=== PATIENT | female | born 1950 | race Caucasian/White ===

== ENCOUNTER 2019-11-25 12:29 | Outpatient (CLI) | payer MEDICARE, OTHER, SELFPAY ==
--- NOTE | 2019-11-25 12:54 | ECHO_ITS ---
Patient Info Name: Debo Brennan Age: 69 years : 1950 Gender: Female Ht: 60 in Wt: 115 lbs BSA: 1.49 m2 HR: 70 bpm BP: 122 / 71 mmHg Technical Quality: Good Exam Date: 11/25/2019 1:00 PM Exam Location: [facility] Patient Status: Outpatient Admit Date: 11/25/2019 Staff Ordering Physician: Danisha Thayer MD Belt Tender: Rivka Yang RDCS Attending Provider: Danisha Thayer MD Referring Physician: Flaca FRAUSTO; Exam Type: CA echo doppler color flow Study Info Indications R01.1 - Cardiac murmur, unspecified Complete two-dimensional, color flow and Doppler transthoracic echocardiogram is performed. Summary 1. Left ventricular chamber dimension is normal. 2. Left ventricular systolic function is normal, estimated at 60-65%. 3. The left ventricular diastolic function is grade II diastolic dysfunction. 4. E/e' 5 is not elevated. 5. Global longitudinal strain is normal at -17.8%. 6. 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 7. There is trace mitral valve regurgitation. 8. There is trace tricuspid valve regurgitation. 9. No pulmonary hypertension, estimated pulmonary arterial systolic pressure is 23 mmHg. Left Ventricle E/e' 5 is not elevated. Global longitudinal strain is normal at -17.8%. Left ventricular chamber dimension is normal. Left ventricular systolic function is normal, estimated at 60-65%. The left ventricular diastolic function is grade II diastolic dysfunction. Right Ventricle Right ventricular chamber dimension is normal. Right ventricular systolic function is normal. Left Atria Left atrial chamber dimension is normal. 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 Right atrial chamber dimension is normal. Aortic Valve The aortic valve is trileaflet. There is no aortic valve stenosis. There is no aortic valve regurgitation. Pulmonic Valve There is no pulmonic regurgitation. Mitral Valve There is no mitral valve stenosis. There is trace mitral valve regurgitation. Tricuspid Valve There is trace tricuspid valve regurgitation. No pulmonary hypertension, estimated pulmonary arterial systolic pressure is 23 mmHg. Pericardium/Pleural There is no pericardial effusion. Inferior Vena Cava Normal inferior vena cava with >50% collapse upon inspiration consistent with normal right atrial pressure, 5 mmHg. Aorta The aortic root size at the sinus of Valsalva is normal. Left Ventricular Outflow Tract Name Value Normal LVOT 2D LVOT Diameter 1.9 cm LVOT Doppler LVOT Peak Velocity 110 cm/s LVOT Peak Gradient 5 mmHg LVOT Mean Gradient 3 mmHg LVOT VTI 24 cm LVOT VTI/AV VTI Ratio 0.9 LVOT Stroke Volume 66 ml LVOT CO 4.4 l/min LVOT CI 2.9 l/min/m2 Pulmonic Valve Name
== END 2019-11-25 12:30 | disposition home or self-care (01) ==
PROVIDERS: PCP Family Medicine; Visit Provider Family Medicine
DX: R01.1 Cardiac murmur, unspecified (principal)
CPT/HCPCS: 93306

== ENCOUNTER 2019-12-06 00:25 | Outpatient (CLI) | payer MEDICARE, OTHER, SELFPAY ==
[2019-12-06 19:45] LABS: SARS-CoV-2 RNA PCR Negative
== END 2019-12-06 00:26 | disposition home or self-care (01) ==
LOC: ANHCOVIDDT 00:26
PROVIDERS: PCP Family Medicine; Visit Provider Internal Medicine Gastroenterology
DX: Z01.818 Encounter for other preprocedural examination (principal); Z11.59 Encounter for screening for other viral diseases
CPT/HCPCS: 87635; C9803; U0003

== ENCOUNTER 2019-12-08 04:04 | Day surgery (SDC) | payer MEDICARE, OTHER, SELFPAY ==
[2019-12-01 13:58] VITALS: BMI 22.4
--- NOTE | 2019-12-08 09:04 | WPDANESEPPF ---
Anes - Initial Pre Proc Eval Procedure: Operation Date: 12/08/19 10:30 Proposed Procedures p Colonoscopy - Mendez Lynn MD Date/Time: 12/08/19 09:04 Surgeon: Mendez Lynn MD Pre Op Diagnosis: Iron Deficiency Anemia Patient Data Age: 69 Gender: F Height: 1.52 m Weight: 52 kg Allergies Allergy/AdvReac Type Severity Reaction Status Date / Time No Known Allergies Allergy Unknown Verified 12/01/19 13:54 Home Medications Medication Instructions Recorded Confirmed Type diclofenac sodium 75 mg 75 mg PO DAILY tablet 08/30/19 12/01/19 History tablet,delayed release ergocalciferol (vitamin D2) 1,250 1,250 mcg PO MONTHLY 08/30/19 12/01/19 History mcg (50,000 unit) capsule mirabegron 25 mg tablet,extended 25 mg PO DAILY 08/30/19 12/01/19 History release 24 hr bodoqtiwjzct-Pj-vipa-minerals 18 1 tablet PO tablet 08/30/19 11/30/19 History mg-0.4 mg tablet pantoprazole 20 mg tablet,delayed 20 mg PO QAM #90 tablet 08/30/19 12/01/19 Rx release rosuvastatin 5 mg tablet 5 mg PO DAILY 08/30/19 12/01/19 History melatonin 10 mg PO HS 12/01/19 12/01/19 History Patient hx anesthesia problems: none Family hx anesthesia problems: none PMFSH Past Medical History Medical History (Updated 12/08/19 @ 09:06 by Quincy Alcazar MD) Cancer 2006 colon resection for cancer GERD without esophagitis Grade II diastolic dysfunction 11/2019 echo HTN (hypertension) Iron deficiency anemia, unspecified Malignant neoplasm of colon, unspecified site Mixed hyperlipidemia Normocytic anemia Stress incontinence Family History Family History (Updated 04/08/18 @ 10:31 by DOCTOR UNKNOWN) Other Carcinoma of colon Social History Social History Smoking status: Never smoker Alcohol intake: never Anes - Eval Final PreProcedure Day of Procedure 12/08/19 09:04 Patient weight: normal Heart: regular rate and rhythm Lungs: clear to auscultation and normal air movement Airway: Mallampati scale class II Neurological: alert and oriented Last oral intake: >/= 8 hours ASA classification: III Emergent: no Anesthetic plan: proceed Anesthesia type and monitoring: general GIVS Informed Consent: The patient's anesthetic plan and its attendant risks and benefits were discussed with the patient/family/POA. Questions were solicited and answers provided to the satisfaction of the patient/family/POA.
[2019-12-08 10:13] VITALS: BP 135/74; PULSE 71; RESP 18; TEMP 36.7; O2SAT 98; BMI 23.3
[2019-12-08] MEDS: LACTATED RINGERS 1,000 ML 150 ML IV CONT (10:16)
--- NOTE | 2019-12-08 10:36 | WPDGICN ---
Assessment and Plan Assessment and plan (1) YVON (iron deficiency anemia): Code(s): D50.9 - Iron deficiency anemia, unspecified Status: Acute Assessment and Plan: Patient with iron deficiency anemia. Plan is for colonoscopy to assess more thoroughly because of her prior history of colon cancer. Iron replacement encourage. If colonoscopy not fruitful than EGD would be indicated to search for other sources of anemia. (2) Personal history of malignant neoplasm of large intestine: Code(s): Z85.038 - Personal history of other malignant neoplasm of large intestine Status: Acute (3) GERD without esophagitis: Code(s): K21.9 - Gastro-esophageal reflux disease without esophagitis Status: Acute GI Consult Note Consult date/time: 12/08/19 10:36 HPI: Debo Brennan is a 69 year old female seen at the request of Dr Danisha Thayer. Patient presents for colonoscopy. She recently was found to have iron deficiency anemia repeat colonoscopy advised. Patient has a past medical history of colon cancer resected in 2006. She denies any obvious blood in her stools. She denies abdominal pain current weight appetite bowel movements are normal. Last exam was March 2019 because of progressive anemia of primary care service request follow-up colonoscopy. Patient is quite concerned about recurrent colon cancer. Patient's family history is noncontributory. Review of Systems Review of Systems: All systems reviewed & are unremarkable except as noted in HPI and below PMFSH Past Medical History Medical History Cancer 2006 colon resection for cancer GERD without esophagitis Grade II diastolic dysfunction 11/2019 echo HTN (hypertension) Iron deficiency anemia, unspecified Malignant neoplasm of colon, unspecified site Mixed hyperlipidemia Normocytic anemia Stress incontinence Family History Family History Other Carcinoma of colon Social History Social History Smoking status: Never smoker Alcohol intake: never Meds Home Medications and Allergies Home Medications Medication Instructions Recorded Confirmed Type diclofenac sodium 75 mg 75 mg PO DAILY tablet 08/30/19 12/01/19 History tablet,delayed release ergocalciferol (vitamin D2) 1,250 1,250 mcg PO MONTHLY 08/30/19 12/01/19 History mcg (50,000 unit) capsule mirabegron 25 mg tablet,extended 25 mg PO DAILY 08/30/19 12/01/19 History release 24 hr herublczwybp-Hd-acag-minerals 18 1 tablet PO tablet 08/30/19 11/30/19 History mg-0.4 mg tablet pantoprazole 20 mg tablet,delayed 20 mg PO QAM #90 tablet 08/30/19 12/01/19 Rx release rosuvastatin 5 mg tablet 5 mg PO DAILY 08/30/19 12/01/19 History melatonin 10 mg PO HS 12/01/19 12/01/19 History Allergies Allergy/AdvReac Type Severity Reaction Status Date / Time No Known Allergies Allergy Unknown Verified 12/08/19 10:12 Vital Signs Vital Signs - 24 hr 12/08/19 10:13 Temperature 98.0 F Pulse Rate 71 Respiratory Rate 18 Blood Pressure 135/74 Pulse Oximetry 98 Exam Narrative: Exam Narrative: Physical exam reveals patient to be alert. Vital signs stable. HEENT exam unremarkable. Lungs are clear to auscultation and percussion. Heart is without murmur or extra sounds. Abdominal exam bowel sounds are present soft nontender with no organomegaly. Digital external rectal exam is normal.
[2019-12-08 11:40] VITALS: BP 100/57; PULSE 73; RESP 20; O2SAT 99
[2019-12-08 11:50] VITALS: BP 125/88; PULSE 87; RESP 21; O2SAT 100
[2019-12-08 12:00] VITALS: BP 119/70; PULSE 76; RESP 19; O2SAT 98
[2019-12-08 12:10] VITALS: BP 133/91; PULSE 76; RESP 21; O2SAT 100
== END 2019-12-08 12:21 | disposition home or self-care (01) ==
PROVIDERS: PCP Family Medicine; Visit Provider Internal Medicine Gastroenterology
PROC: 0DJD8ZZ Inspection of Lower Intestinal Tract, Via Natural or Artificial Opening Endoscopic (ICD-10-PCS; CPT 45378; principal; 2019-12-08 10:30)
DX: D50.9 Iron deficiency anemia, unspecified (principal); K64.8 Other hemorrhoids; Z85.038 Personal history of other malignant neoplasm of large intestine; Z98.0 Intestinal bypass and anastomosis status; Z90.49 Acquired absence of other specified parts of digestive tract; K21.9 Gastro-esophageal reflux disease without esophagitis; I11.0 Hypertensive heart disease with heart failure; I50.30 Unspecified diastolic (congestive) heart failure; E78.2 Mixed hyperlipidemia; N39.3 Stress incontinence (female) (male)
CPT/HCPCS: 45378; J2704; J7120

== ENCOUNTER 2022-07-15 01:07 | Day surgery (SDC) | payer MEDICARE, SELFPAY ==
[2022-06-30 14:36] VITALS: BMI 25.0
[2022-07-15 06:52] VITALS: BP 106/56; PULSE 68; RESP 18; TEMP 36.2; O2SAT 99
[2022-07-15] MEDS: LACTATED RINGERS 1,000 ML 150 ML IV CONT (07:06)
--- NOTE | 2022-07-15 07:49 | PM.HPGS ---
History of Present Illness History of Present Illness Consent: Risks, benefits, and alternatives have been discussed and questions answered. Patient agrees to proceed with procedure. Chief complaint: hx of colon cancer Narrative: Debo Brennan is a 72 year old female Presents for screening colonoscopy. Patient's current weight appetite and bowel movements are normal. Patient denies abdominal pain. She has had no bleeding. Patient has a prior history of colon cancer diagnosed And resected in the year 2006. Previous colonoscopy in 3 years ago was unremarkable. patient reports currently doing well. Review of Systems Review of Systems: Review of systems noncontributory. [facility] Past Medical History Medical History (Updated 12/13/19 @ 10:01 by Danisha Thayer MD) Cancer 2007 colon resection for cancer GERD without esophagitis Grade II diastolic dysfunction 11/2019 echo HTN (hypertension) Intestinal anastomosis present iliocolonic anastomosis after right colectomy / colon cancer 2006 Iron deficiency anemia, unspecified Malignant neoplasm of colon, unspecified site Mixed hyperlipidemia Normocytic anemia Stress incontinence Surgical History Surgical History (Updated 12/13/19 @ 10:01 by Danisha Thayer MD) History of partial colectomy Family History Family History Other Carcinoma of colon Social History Social History Smoking status: Never smoker Alcohol intake: never Living arrangements: with family Spiritual care concerns: No Meds Home Medications and Allergies Home Medications Medication Instructions Recorded Confirmed Type diclofenac sodium 75 mg 75 mg PO DAILY 08/30/19 06/30/22 History tablet,delayed release fulgkfiyvpuz-Pp-huys-minerals 18 1 tablet PO DAILY 08/30/19 06/30/22 History mg-0.4 mg tablet pantoprazole 20 mg tablet,delayed See Rx Instructions .Route 01/01/21 06/30/22 Rx release .COMPLEX #90 tabs rosuvastatin 5 mg tablet See Rx Instructions .Route 01/01/21 06/30/22 Rx .COMPLEX #90 tabs sodium,potassium,mag sulfates 17.5 See Rx Instructions PO .COMPLEX 05/15/22 06/30/22 Rx gram-3.13 gram-1.6 gram oral soln #354 mL (Suprep Bowel Prep Kit) cholecalciferol (vitamin D3) 50 50 mcg PO DAILY 06/30/22 06/30/22 History mcg (2,000 unit) capsule (Vitamin D3) colestipol 1 gram tablet 1 g PO DAILY 06/30/22 06/30/22 History oxybutynin chloride 10 mg 10 mg PO DAILY 06/30/22 06/30/22 History tablet,extended release 24 hr Allergies Allergy/AdvReac Type Severity Reaction Status Date / Time No Known Allergies Allergy Unknown Verified 07/15/22 06:51 Vital Signs Vital Signs - 24 hr 07/15/22 06:52 Temperature 97.1 F L Pulse Rate 68 Respiratory Rate 18 Blood Pressure 106/56 L Pulse Oximetry 99 Oxygen Delivery Room Air Exam Narrative: Physical exam reveals patient to be alert. Vital signs stable. HEENT exam is unremarkable. Patient is anicteric. Lungs are clear to auscultation and percussion. Heart is without murmur or extra sounds. Abdomen bowel sounds are present soft nontender with no organomegaly. Digital external rectal exam is normal. Assessment and Plan Assessment and plan (1) Personal history of malignant neoplasm of large intestine: Code(s): Z85.038 - Personal history of other malignant neoplasm of large intestine Status: Acute Assessment and Plan: Patient has a history of ascending colon cancer resected 2006. Followed by Dr. Katherine Ramirez. Currently doing well. Plan for surveillance at this time. Further recommendations may be given after endoscopy. (2) History of partial colectomy: Code(s): Z90.49 - Acquired absence of other specified parts of digestive tract Status: Acute (3) YVON (iron deficiency anemia): Code(s): D50.9 - Iron deficiency anemia, unspecified Status: Acute Assessment and Plan:
--- NOTE | 2022-07-15 07:54 | WPDANESEPPF ---
Anes - Initial Pre Proc Eval Procedure: Operation Date: 07/15/22 08:00 Proposed Procedures p Screening Colonoscopy - Mendez Lynn MD Date/Time: 07/15/22 07:54 Surgeon: Mendez Lynn MD Pre Op Diagnosis: hx of colon cancer Patient Data Age: 72 Gender: F Height: 1.52 m Weight: 59.7 kg Last Vital Signs Temp 97.1 F L 07/15/22 06:52 Pulse 68 07/15/22 06:52 Resp 18 07/15/22 06:52 BP 106/56 L 07/15/22 06:52 Pulse Ox 99 07/15/22 06:52 O2 Del Method Room Air 07/15/22 06:52 Allergies Allergy/AdvReac Type Severity Reaction Status Date / Time No Known Allergies Allergy Unknown Verified 07/15/22 06:51 Home Medications Medication Instructions Recorded Confirmed Type diclofenac sodium 75 mg 75 mg PO DAILY 08/30/19 06/30/22 History tablet,delayed release cmatbutcwemh-Ue-enmw-minerals 18 1 tablet PO DAILY 08/30/19 06/30/22 History mg-0.4 mg tablet pantoprazole 20 mg tablet,delayed See Rx Instructions .Route 01/01/21 06/30/22 Rx release .COMPLEX #90 tabs rosuvastatin 5 mg tablet See Rx Instructions .Route 01/01/21 06/30/22 Rx .COMPLEX #90 tabs sodium,potassium,mag sulfates 17.5 See Rx Instructions PO .COMPLEX 05/15/22 06/30/22 Rx gram-3.13 gram-1.6 gram oral soln #354 mL (Suprep Bowel Prep Kit) cholecalciferol (vitamin D3) 50 50 mcg PO DAILY 06/30/22 06/30/22 History mcg (2,000 unit) capsule (Vitamin D3) colestipol 1 gram tablet 1 g PO DAILY 06/30/22 06/30/22 History oxybutynin chloride 10 mg 10 mg PO DAILY 06/30/22 06/30/22 History tablet,extended release 24 hr Patient hx anesthesia problems: none Family hx anesthesia problems: none Results Review: All pre-operative results and documents have been reviewed as part of the pre-operative evaluation. [facility] Past Medical History Medical History (Updated 12/13/19 @ 10:01 by Danisha Thayer MD) Cancer 2007 colon resection for cancer GERD without esophagitis Grade II diastolic dysfunction 11/2019 echo HTN (hypertension) Intestinal anastomosis present iliocolonic anastomosis after right colectomy / colon cancer 2006 Iron deficiency anemia, unspecified Malignant neoplasm of colon, unspecified site Mixed hyperlipidemia Normocytic anemia Stress incontinence Surgical History Surgical History (Updated 12/13/19 @ 10:01 by Danisha Thayer MD) History of partial colectomy Family History Family History Other Carcinoma of colon Social History Social History Smoking status: Never smoker Alcohol intake: never Living arrangements: with family Spiritual care concerns: No Anes - Eval Final PreProcedure Day of Procedure 07/15/22 07:54 Patient weight: normal Heart: regular rate and rhythm Lungs: clear to auscultation Airway: Mallampati scale class II Neurological: alert and oriented Last oral intake: >/= 8 hours ASA classification: III Emergent: no Anesthetic plan: proceed Anesthesia type and monitoring: general GIVS and standard monitoring Results Review: All pre-operative results and documents have been reviewed as part of the pre-operative evaluation. Informed Consent: The patient's anesthetic plan and its attendant risks and benefits were discussed with the patient/family/POA. Questions were solicited and answers provided to the satisfaction of the patient/family/POA.
[2022-07-15 08:19] VITALS: BP 114/70; PULSE 67; RESP 21; O2SAT 100
[2022-07-15 08:29] VITALS: BP 118/71; PULSE 64; RESP 18; O2SAT 100
[2022-07-15 08:39] VITALS: BP 135/74; PULSE 65; RESP 19; O2SAT 100
== END 2022-07-15 08:48 | disposition home or self-care (01) ==
PROVIDERS: PCP Nurse Practitioner; Referring Provider Internal Medicine Medical Oncology; Visit Provider Internal Medicine Gastroenterology
PROC: 0DJD8ZZ Inspection of Lower Intestinal Tract, Via Natural or Artificial Opening Endoscopic (ICD-10-PCS; CPT 45378; principal; 2022-07-15 08:00)
DX: Z12.11 Encounter for screening for malignant neoplasm of colon (principal); K64.8 Other hemorrhoids; Z85.038 Personal history of other malignant neoplasm of large intestine; Z90.49 Acquired absence of other specified parts of digestive tract; Z98.0 Intestinal bypass and anastomosis status; K21.9 Gastro-esophageal reflux disease without esophagitis; E78.2 Mixed hyperlipidemia; D50.9 Iron deficiency anemia, unspecified; I11.9 Hypertensive heart disease without heart failure; N39.3 Stress incontinence (female) (male)
CPT/HCPCS: G0105; J2704; J7120

== ENCOUNTER 2023-12-14 17:02 | Emergency (ER) | payer MEDICARE, SELFPAY ==
[2023-12-14 17:11] VITALS: BP 137/93; PULSE 67; RESP 16; TEMP 37.1; O2SAT 100
--- NOTE | 2023-12-14 17:16 | ED.BACK ---
HPI - Back Pain/Injury General Chief Complaint: Back Pain/Injury Stated Complaint: left leg pain and lower back Time Seen by Provider: 12/14/23 17:16 Source: patient Mode of arrival: ambulatory Limitations: no limitations History of Present Illness HPI Narrative: 73-year-old female presents with complaint of pain to left buttock radiating down left lower extremity for 1 week. Denies injury. History of sciatic go 1 month ago but states it resolved quickly. Takes diclofenac daily for bilateral knee pain. Has been taking Tylenol to treat sciatic pain with no relief. Ambulatory with steady gait. Denies numbness, weakness to lower extremities. No loss of bowel or bladder. All systems reviewed and negative except as noted above. Related Data Home Medications Medication Instructions Recorded Confirmed diclofenac sodium 75 mg 75 mg PO DAILY 08/30/19 12/14/23 tablet,delayed release qaamvzsdnufr-Pc-huti-minerals 18 1 tablet PO DAILY 08/30/19 12/14/23 mg-0.4 mg tablet cholecalciferol (vitamin D3) 50 50 mcg PO DAILY 06/30/22 12/14/23 mcg (2,000 unit) capsule (Vitamin D3) colestipol 1 gram tablet 1 g PO DAILY 06/30/22 12/14/23 oxybutynin chloride 10 mg 10 mg PO DAILY 06/30/22 12/14/23 tablet,extended release 24 hr Allergies Allergy/AdvReac Type Severity Reaction Status Date / Time No Known Allergies Allergy Unknown Verified 12/14/23 17:04 Review of Systems Review of Systems: CONSTITUTIONAL: Denies fever, chills, or sweats. EYES: Denies visual changes, redness, or discharge. ENT: Denies rhinorrhea, congestion, sore throat, or otalgia. CARDIOVASCULAR: Denies chest pain, palpitations, or edema. RESPIRATORY: Denies cough or dyspnea. GASTROINTESTINAL: Denies abdominal pain, nausea, vomiting, or diarrhea. GENITOURINARY: Denies dysuria or hematuria. SKIN: Denies rash or itching. MUSCULOSKELETAL: denies back pain, joint pain, or myalgia. reports left-sided buttock pain radiating to left lower extremity NEUROLOGIC: Denies headache, numbness, or weakness. PSYCHIATRIC: Denies anxiety or depression. All other systems reviewed are negative, except as documented in HPI. [facility] Past Medical History Medical History (Updated 12/14/23 @ 17:42 by Carmen Waters NP) Cancer 2007 colon resection for cancer GERD without esophagitis Grade II diastolic dysfunction 11/2019 echo HTN (hypertension) Intestinal anastomosis present iliocolonic anastomosis after right colectomy / colon cancer 2006 Iron deficiency anemia, unspecified Malignant neoplasm of colon, unspecified site Mixed hyperlipidemia Normocytic anemia Stress incontinence Surgical History Surgical History (Updated 12/13/19 @ 10:01 by Danisha Thayer MD) History of partial colectomy Family History Family History Other Carcinoma of colon Social History Social History Smoking status: Never smoker Alcohol intake: never Living arrangements: with family Spiritual care concerns: No Comments At time of signature, agree with nursing past medical, surgical, social and family history. There is no relevant family history pertinent to the presenting complaint. Exam Narrative: GENERAL: This is a well-nourished, well-developed patient, in no apparent distress. HEAD: normocephalic, atraumatic. EYES: PERRL. Sclera clear/white. Vision is grossly intact. EARS: External ears normal NOSE: External nose normal NECK: Neck supple, non-tender without lymphadenopathy, masses or thyromegaly. CARDIOVASCULAR: Regular rate and rhythm without murmurs, gallops, or rubs. RESPIRATORY: Clear to auscultation. Breath sounds equal bilaterally. No wheezes, rales, or rhonchi. SKIN: warm, Dry, intact with no suspicious lesions or rash, good texture and turgor. NEURO: awake, alert, and oriented to person, place and time. There were no obvious focal neurologic abnormalities. EXTREMITIES: No woody
[2023-12-14] MEDS: KETOROLAC 30 MG/ML VIAL (*BKC) IM (17:41)
== END 2023-12-14 18:00 | disposition home or self-care (01) ==
PROVIDERS: Emergency Provider Nurse Practitioner Family; PCP Nurse Practitioner
DX: M54.32 Sciatica, left side (principal); K21.9 Gastro-esophageal reflux disease without esophagitis; I10 Essential (primary) hypertension; E78.2 Mixed hyperlipidemia; D50.9 Iron deficiency anemia, unspecified; Z85.038 Personal history of other malignant neoplasm of large intestine
CPT/HCPCS: 96372; 99213; G0463; J1885